=== PATIENT | female | born 1950 | race Hispanic/Latino ===

== ENCOUNTER 2018-07-14 10:02 | Outpatient (CLI) | payer MEDICARE ==
--- NOTE | 2018-08-08 19:25 | Magnetic Resonance Report ---
MR scan of the cranium was performed without contrast. Pulse sequences included: 1. T1 weighted sagittal and axial images without contrast 2. T2 weighted axial and coronal images 3. FLAIR axial images 4. Diffusion-weighted axial images 5. Apparent diffusion coefficient images Views of the posterior fossa showed a normal craniocervical junction. Cerebellar pontine angles were normal with normal seventh-eighth nerve complexes. Brainstem and cerebellum were normal. The ventricular system showed mild dilatation but no distortion. Images of the hemispheres showed a large area of mixed signal in the left frontal regional and another area of mixed signal in the right occipital region. Both areas showed increased signal in the cortical band on T1 imaging suggesting luxury perfusion in addition to areas of increased signal in diffuse regions on FLAIR and T2 imaging. A small area of increased signal was seen at the left occipital pole suggesting addition abnormalities Sinuses, flow voids in the [place], orbits, pituitary and basal ganglia were normal. Impression: Abnormal MR scan of the cranium without contrast. a. 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 right occipital lesion with luxury perfusion ii. left occipital lesion -- small iii. left frontal lesion with luxury perfusion
== END 2018-07-14 10:03 | disposition home or self-care (01) ==
LOC: MRI 10:02
PROVIDERS: ATTEND Specialist
DX: I63.40 Cerebral infarction due to embolism of unspecified cerebral artery (principal); Z88.0 Allergy status to penicillin; Z91.048 Other nonmedicinal substance allergy status
CPT/HCPCS: 70551